=== PATIENT | female | born 1955 | race Caucasian/White ===

== ENCOUNTER 2017-10-13 06:28 | Day surgery (SDC) | payer OTHER ==
[~2017-10-13] VITALS: Ht 172.7 cm; Wt 157.4 kg
[~2017-10-13 06:28] MED LIST: ACET500 PO; ASPI81EC PO; CHLO25B PO; FERR325 PO; FISH1000 PO; LEVSOD100 PO; LEVSOD25 PO; LOESTRIN FE PO; MECL12.5 PO; MEDR5 PO; ORACON PO
[2017-10-13] MEDS ORDERED: ASPI325 PO (07:10)
[2017-10-13] MEDS ORDERED: ACET500 (07:10)
== END 2017-10-14 00:05 | disposition home or self-care (01) ==
LOC: ORSCMMR 06:28
PROVIDERS: Internal Medicine Gastroenterology
PROC: 0DBL8ZX Excision of Transverse Colon, Via Natural or Artificial Opening Endoscopic, Diagnostic (ICD-10-PCS; principal; 2017-10-13 08:00)
PROC: 0DBE8ZX Excision of Large Intestine, Via Natural or Artificial Opening Endoscopic, Diagnostic (ICD-10-PCS; principal; 2017-10-13 08:00)
PROC: 0DBK8ZX Excision of Ascending Colon, Via Natural or Artificial Opening Endoscopic, Diagnostic (ICD-10-PCS; principal; 2017-10-13 08:00)
PROC: 0DBN8ZX Excision of Sigmoid Colon, Via Natural or Artificial Opening Endoscopic, Diagnostic (ICD-10-PCS; principal; 2017-10-13 08:00)
DX: Z12.11 Encounter for screening for malignant neoplasm of colon (principal); D12.2 Benign neoplasm of ascending colon; D12.3 Benign neoplasm of transverse colon; D12.5 Benign neoplasm of sigmoid colon; K63.5 Polyp of colon; K62.1 Rectal polyp; K52.9 Noninfective gastroenteritis and colitis, unspecified; K64.8 Other hemorrhoids; I10 Essential (primary) hypertension; E66.01 Morbid (severe) obesity due to excess calories; Z68.43 Body mass index [BMI] 50.0-59.9, adult; F17.210 Nicotine dependence, cigarettes, uncomplicated; Z79.899 Other long term (current) drug therapy; Z79.82 Long term (current) use of aspirin
CPT/HCPCS: 88305; J7120

== ENCOUNTER 2020-07-05 10:36 | Emergency (ER) | payer OTHER ==
[~2020-07-05] VITALS: Ht 172.7 cm; Wt 163.3 kg
[~2020-07-05 10:36] MED LIST changes: +ACET500; +ASPI325 PO
[2020-07-05 11:11] LABS: BASOPHILS ABSOLUTE AUTO 0.06 K/mm3 (0.00-0.23); BASOPHILS PERCENT AUTO 1 % (0-2); EOSINOPHILS ABSOLUTE AUTO 0.18 K/mm3 (0.00-0.68); EOSINOPHILS PERCENT AUTO 3 % (0-6); Hematocrit 44.1 % (33.0-51.0); Hemoglobin 14.1 g/dL (11.5-16.0); IMMATURE GRAN ABSOLUTE AUTO 0.03 K/mm3 (0.00-0.10); IMMATURE GRAN PERCENT AUTO 1 % (0-1); LYMPHOCYTES ABSOLUTE AUTO 1.82 K/mm3 (0.84-5.20); LYMPHOCYTES PERCENT AUTO 31 % (21-46); MONOCYTES ABSOLUTE AUTO 0.38 K/mm3 (0.16-1.47); MONOCYTES PERCENT AUTO 7 % (4-13); Mean Corpuscular HGB 28.5 pg (26.0-34.0); Mean Corpuscular Volume 89 fL (80-100); Mean Platelet Volume 10.4 fL (9.1-12.4); NEUTROPHILS ABSOLUTE AUTO 3.41 K/mm3 (1.96-9.15); NEUTROPHILS PERCENT AUTO 58 % (41-73); Platelet Count 213 K/mm3 (150-400); RDW Coefficient Variation 13.8 % (11.7-14.2); RDW Standard Deviation 44.3 fL (35.1-46.3); Red Blood Cell Count 4.94 M/mm3 (3.80-5.20); White Blood Cell Count 5.88 K/mm3 (4.00-11.30)
[2020-07-05 11:30] LABS: Alanine Aminotransfer (ALT/SGP 17 U/L (12-78); Albumin, Blood 3.9 g/dL (3.4-5.0); Alk Phos 91 U/L (50-136); Anion Gap 5 mmol/L (6-16); Aspartate Aminotrans (AST/SGOT 20 U/L (12-37); Bilirubin, Total 0.6 mg/dL (0.1-1.0); Blood Urea Nitrogen 18 mg/dL (8-24); Bun/Creatinine Ratio 25.3 (12.0-20.0); CO2, Blood 29 mmol/L (21-32); Calcium, Blood 9.2 mg/dL (8.5-10.1); Chloride, Blood 110 mmol/L (98-108); Creatinine, Blood 0.71 mg/dL (0.40-1.00); Globulin, Blood 4.1 g/dL (2.2-4.0); Glomerular Filtration Rate >60 (60-); Glucose, Blood 82 mg/dL (70-99); Potassium, Blood 3.9 mmol/L (3.5-5.5); Sodium, Blood 144 mmol/L (136-145); Troponin I <0.015 ng/mL (0.000-0.040)
[2020-07-05] MEDS ORDERED: POTA20PAC PO (13:40)
[2020-07-05] MEDS ORDERED: CODACE30 PO (13:40)
[2020-07-05] MEDS ORDERED: FURO20 PO (13:40)
== END 2020-07-05 14:11 | disposition home or self-care (01) ==
LOC: ER 10:36
PROVIDERS: Physician Assistant
DX: M16.11 Unilateral primary osteoarthritis, right hip (principal); R60.0 Localized edema; E03.9 Hypothyroidism, unspecified; Z91.041 Radiographic dye allergy status; Z88.8 Allergy status to other drugs, medicaments and biological substances; Z79.82 Long term (current) use of aspirin; Z79.899 Other long term (current) drug therapy
CPT/HCPCS: 36415; 71046; 73502; 80053; 83880; 84484; 85025; 93005; 93010; 99284-25

== ENCOUNTER 2022-06-03 07:02 | Day surgery (SDC) | payer OTHER, MEDICARE ==
[~2022-06-03] VITALS: Ht 172.7 cm; Wt 161.7 kg
[~2022-06-03 07:02] MED LIST changes: +CODACE30 PO; +FURO20 PO; +POTA20PAC PO
[2022-06-03] MEDS ORDERED: EUTHYROX175 MCG PO (07:34)
[2022-06-03] MEDS ORDERED: NAPR220 PO (07:35)
--- NOTE | 2022-06-03 09:14 | NUR ---
06/03/22 0914 Katie Quezada REFER TO DR GUILLEN'S ANESTHESIA RECORD.
--- NOTE | 2022-06-03 10:48 | NUR ---
Discharge instructions reviewed with patient. Patient verbalizes understanding. Copy given to patient to take home. Discharged via wheelchair to private car for ride home.
== END 2022-06-03 10:49 | disposition home or self-care (01) ==
LOC: ORSCMMR 07:02 → ORD 08:45 → ORSCMMR 08:45 → ORD 09:00 → ORSCMMR 10:49
PROVIDERS: Internal Medicine Gastroenterology
PROC: 0DBL8ZX Excision of Transverse Colon, Via Natural or Artificial Opening Endoscopic, Diagnostic (ICD-10-PCS; principal; 2022-06-03 08:45)
PROC: 0DBN8ZX Excision of Sigmoid Colon, Via Natural or Artificial Opening Endoscopic, Diagnostic (ICD-10-PCS; principal; 2022-06-03 08:45)
PROC: 0DBE8ZX Excision of Large Intestine, Via Natural or Artificial Opening Endoscopic, Diagnostic (ICD-10-PCS; principal; 2022-06-03 08:45)
DX: K51.90 Ulcerative colitis, unspecified, without complications (principal); Z86.010 Personal history of colon polyps; Z83.71 Family history of colonic polyps; K51.40 Inflammatory polyps of colon without complications; K63.5 Polyp of colon; K64.8 Other hemorrhoids; K64.4 Residual hemorrhoidal skin tags; L53.9 Erythematous condition, unspecified; G47.33 Obstructive sleep apnea (adult) (pediatric); R56.9 Unspecified convulsions; E05.90 Thyrotoxicosis, unspecified without thyrotoxic crisis or storm; E66.01 Morbid (severe) obesity due to excess calories; Z68.43 Body mass index [BMI] 50.0-59.9, adult; Z79.82 Long term (current) use of aspirin; Z79.899 Other long term (current) drug therapy
CPT/HCPCS: 88305; J2250; J2405; J2704; J7120

== ENCOUNTER 2023-01-19 11:34 | Inpatient (IN) | payer MEDICARE, OTHER ==
[2023-01-19] VITALS (16 sets, daily range): BP systolic 128–155; BP diastolic 67–100
[~2023-01-19] VITALS: Ht 172.7 cm; Wt 143.8 kg
[~2023-01-19 11:34] MED LIST changes: -LEVSOD150 PO
[2023-01-19] MEDS ORDERED: LEVSOD150 PO ×2 (12:17)
[2023-01-19] MEDS ORDERED: ACET500 PO ×2 (12:19)
--- NOTE | 2023-01-19 15:54 | NUR ---
ASSESSMENTS I AGREE WITH THE STUDENT RN MAGNUS'S ASSESSMENTS AND DOCUMENTATION ON THIS PATIENT
--- NOTE | 2023-01-19 17:09 | NUR ---
VITOR ARRIVED TO OUR UNIT A DIRECT ADMIT FROM REARDAN, SHE WAS SEEN BY DR. TEMPLETON TODAY FOR A SURGICAL CONSULT, GOT AN ABD CT SCAN, AND AN NG TUBE PLACED. AFTER REVIEW OF THE CT SCAN, THE PT WAS TAKEN DOWN FOR SURGERY @ 1712 ACOMPANIED BY HER .
--- NOTE | 2023-01-19 17:11 | NUR ---
PT IS A/OX4, PLEASANT AND COOPERATIVE. THE PT IS UP WITH MINIMAL ASSIST. PT WAS MEDICATED FOR PAIN X1 SO FAR THIS SHIFT. NG TUBE WAS PLACED AND SECURED DRAINING GREEN BILE. PT TOLERATED THE NG PLACEMENT WELL. THE PT WAS TAKEN TO THE OR AT THIS TIME.
--- NOTE | 2023-01-19 17:27 | NUR ---
SITE WAS NOTICEABLY RED, DR. LEMON EXAMINED AND ASSESSED AND BECAUSE OF PATENCY, DECIDED TO KEEP A SECOND SITE. WILL REMOVE AFTER SURGERY.
--- NOTE | 2023-01-19 18:20 | NUR ---
report recieved on patient. she will be coming to room 224 post procedure. will report to oncoming rn.
[2023-01-20 00:17] VITALS: BP 132/77
[2023-01-20 02:37] VITALS: BP 146/75
--- NOTE | 2023-01-20 04:18 | NUR ---
SHIFT SUMMARY POD1 EX LAP WITH LYSIS OF ADHESIONS,SMALL BOWEL RESECTION. DELLA DRESSING TO RLQ TRANSVERSE INCISION, WNL AND COMPRESSED WITH SX AND SEAL INTACT. C/D/I. LAY DRAIN TO RLQ DRAINING BLOOD TINGED LIQUID, DRAIN IS COMPRESSED. AND SECURED WITH THG TRANSPARENT DRESSING. NGT IN PLACE TO LOW INT. SX. WITH GREEN LIQUID DRAINAGE OUTPUT. PATIENT IS NPO AT THIS TIME, DENIES N/V. HYPOACTIVE BOWEL TONES. MEDICATED FOR PAIN AND WELL MANAGED. NOTED THAT THE PATIENT HAS A REDDEND AREA IN THE GROIN, ORDER OBTAINED FOR NYSTATIN CREAM. PATIENT IS AOX4. SCD'S IN PLACE. VITAL SIGNS WNL. CALL LIGHT IN REACH, WILL REPORT TO ONCOMING NURSE.
[2023-01-20 04:39] LABS: BASOPHILS ABSOLUTE AUTO 0.02 K/mm3 (0.00-0.23); BASOPHILS PERCENT AUTO 0 % (0-2); EOSINOPHILS PERCENT AUTO 0 % (0-6); Hematocrit 45.9 % (33.0-51.0); Hemoglobin 14.9 g/dL (11.5-16.0); IMMATURE GRAN ABSOLUTE AUTO 0.07 K/mm3 (0.00-0.10); IMMATURE GRAN PERCENT AUTO 1 % (0-1); LYMPHOCYTES ABSOLUTE AUTO 1.03 K/mm3 (0.84-5.20); LYMPHOCYTES PERCENT AUTO 7 % (21-46); MONOCYTES ABSOLUTE AUTO 1.36 K/mm3 (0.16-1.47); MONOCYTES PERCENT AUTO 9 % (4-13); Mean Corpuscular HGB 28.3 pg (26.0-34.0); Mean Corpuscular HGB Conc 32.5 g/dL (31.5-36.5); Mean Corpuscular Volume 87 fL (80-100); Mean Platelet Volume 10.5 fL (9.1-12.4); NEUTROPHILS ABSOLUTE AUTO 12.56 K/mm3 (1.96-9.15); NEUTROPHILS PERCENT AUTO 84 % (41-73); Platelet Count 207 K/mm3 (150-400); RDW Coefficient Variation 13.3 % (11.7-14.2); RDW Standard Deviation 42.6 fL (35.1-46.3); Red Blood Cell Count 5.26 M/mm3 (3.80-5.20); White Blood Cell Count 15.04 K/mm3 (4.00-11.30)
[2023-01-20 05:05] LABS: Albumin, Blood 2.6 g/dL (3.4-5.0); Albumin/Globulin Ratio 0.8 (0.8-1.8); Bilirubin, Total 0.7 mg/dL (0.1-1.0); Bun/Creatinine Ratio 25.2 (12.0-20.0); Calcium, Blood 8.2 mg/dL (8.5-10.1); Creatinine, Blood 0.68 mg/dL (0.40-1.00); Globulin, Blood 3.4 g/dL (2.2-4.0); Potassium, Blood 3.5 mmol/L (3.5-5.5)
[2023-01-20 07:10] VITALS: BP 144/73
[2023-01-20 14:39] VITALS: BP 109/62
[2023-01-20 19:27] VITALS: BP 137/55
--- NOTE | 2023-01-20 19:28 | NUR ---
SHIFT SUMMARY PT POD 1 EXPLORATORY LAP, SM BOWEL RESECTION, AND HERNIA REPAIR. SHE A/O X4. VSS, O2 >90% ON 2L NC. SHE HAS A DELLA DRESSING IN HER RLQ, DRESSING C/D/I. LAY DRAIN IN RLQ WITH 30ML PINK/CLEAR FLUID OUT. SHE HAS AN NG TUBE TO LOW INTERMITTENT SUCTION WITH 100ML OF DARK BROWN/MAROON FLUID OUT, DECREASED FROM PREVIOUS SHIFT. PT PAIN IS WELL MANAGED WITH MORPHINE Q4. HER NG WAS REMOVED THIS AFTERNOON. UP TO THE CHAIR WITH 1 PERSON ASSIST TODAY. SHE HAS BEEN EDUCATED ON THE USE OF HER CALL LIGHT AND CALLS APPROPRIATELY. WILL REPORT TO TELEPHONE LINES REPAIRER RN.
[2023-01-21 04:44] LABS: BASOPHILS ABSOLUTE AUTO 0.03 K/mm3 (0.00-0.23); BASOPHILS PERCENT AUTO 0 % (0-2); EOSINOPHILS ABSOLUTE AUTO 0.09 K/mm3 (0.00-0.68); EOSINOPHILS PERCENT AUTO 1 % (0-6); Hematocrit 42.6 % (33.0-51.0); Hemoglobin 13.5 g/dL (11.5-16.0); IMMATURE GRAN ABSOLUTE AUTO 0.05 K/mm3 (0.00-0.10); IMMATURE GRAN PERCENT AUTO 1 % (0-1); LYMPHOCYTES ABSOLUTE AUTO 1.41 K/mm3 (0.84-5.20); LYMPHOCYTES PERCENT AUTO 13 % (21-46); MONOCYTES ABSOLUTE AUTO 1.06 K/mm3 (0.16-1.47); MONOCYTES PERCENT AUTO 10 % (4-13); Mean Corpuscular HGB 28.5 pg (26.0-34.0); Mean Corpuscular HGB Conc 31.7 g/dL (31.5-36.5); Mean Corpuscular Volume 90 fL (80-100); Mean Platelet Volume 11.1 fL (9.1-12.4); NEUTROPHILS ABSOLUTE AUTO 7.93 K/mm3 (1.96-9.15); NEUTROPHILS PERCENT AUTO 75 % (41-73); Platelet Count 198 K/mm3 (150-400); RDW Coefficient Variation 13.5 % (11.7-14.2); RDW Standard Deviation 44.6 fL (35.1-46.3); Red Blood Cell Count 4.73 M/mm3 (3.80-5.20); White Blood Cell Count 10.57 K/mm3 (4.00-11.30)
[2023-01-21 05:07] LABS: Albumin, Blood 2.3 g/dL (3.4-5.0); Albumin/Globulin Ratio 0.6 (0.8-1.8); Bilirubin, Total 0.8 mg/dL (0.1-1.0); Bun/Creatinine Ratio 26.5 (12.0-20.0); Calcium, Blood 8.4 mg/dL (8.5-10.1); Creatinine, Blood 0.79 mg/dL (0.40-1.00); Globulin, Blood 3.6 g/dL (2.2-4.0); Potassium, Blood 3.4 mmol/L (3.5-5.5); Total Protein, Blood 5.9 g/dL (6.4-8.2)
[2023-01-21 05:26] VITALS: BP 140/65
--- NOTE | 2023-01-21 06:47 | NUR ---
SHIFT SUMMARY NO ACUTE CHANGES OVERNIGHT, PT HAS RESTED OFF AND ON T/O SHIFT. DELLA DRESSING TO ABD C/D/I, GREEN LIGHT FLASHING. LAY DRAIN IN PLACE WITH MINIMAL SEROSANGUINOUS OUTPUT. ABD SOFT TO TOUCH, BOWEL TONES ARE HYPOACTIVE X4 QUADRANTS. NG TUBE REMAINS IN PLACE TO LOW INTERMITTENT SUCTION. SMALL AMOUNT OF RUST COLOR DRAINAGE IN TUBING BUT NOTHING IN CANNISTER ALL NIGHT. SHE HAS NO COMPLAINTS OF ABD PAIN, SHE IS NOT YET PASSING GAS. PT COMPLAINS OF THROAT DISCOMFORT AND HEADACHE, MEDICATED PER EMAR. IV ANTIBIOTICS AND IVF PER ORDERS. PT HAS BEEN UP AND HAS VOIDED SINCE NG REMOVAL YESTERDAY EVENING. VITALS STABLE. BED IN LOWEST POSITION, CALL LIGHT WITHIN REACH.
[2023-01-21 07:00] VITALS: BP 123/56
[2023-01-21 16:19] VITALS: BP 123/56
--- NOTE | 2023-01-21 18:49 | NUR ---
SHIFT SUMMARY PT A&OX4, VSS/RA, DEANDRE PO CLD, AMB INDEPENDENTLY IN ROOM/HALLWAY, VOIDING, DENIES PAIN. POD2, DELLA WNL, LAY 20 MLS SS, PASSING FLATUS. WILL REPORT TO ONCOMING NOC RN.
[2023-01-21 21:43] VITALS: BP 126/78
[2023-01-22 04:33] VITALS: BP 124/55
[2023-01-22 05:12] LABS: BASOPHILS ABSOLUTE AUTO 0.04 K/mm3 (0.00-0.23); BASOPHILS PERCENT AUTO 1 % (0-2); EOSINOPHILS ABSOLUTE AUTO 0.19 K/mm3 (0.00-0.68); EOSINOPHILS PERCENT AUTO 2 % (0-6); Hematocrit 40.2 % (33.0-51.0); Hemoglobin 12.5 g/dL (11.5-16.0); IMMATURE GRAN ABSOLUTE AUTO 0.03 K/mm3 (0.00-0.10); IMMATURE GRAN PERCENT AUTO 0 % (0-1); LYMPHOCYTES ABSOLUTE AUTO 1.47 K/mm3 (0.84-5.20); LYMPHOCYTES PERCENT AUTO 17 % (21-46); MONOCYTES PERCENT AUTO 9 % (4-13); Mean Corpuscular HGB Conc 31.1 g/dL (31.5-36.5); Mean Corpuscular Volume 90 fL (80-100); Mean Platelet Volume 11.2 fL (9.1-12.4); NEUTROPHILS ABSOLUTE AUTO 6.01 K/mm3 (1.96-9.15); NEUTROPHILS PERCENT AUTO 70 % (41-73); Platelet Count 211 K/mm3 (150-400); RDW Coefficient Variation 13.4 % (11.7-14.2); RDW Standard Deviation 44.7 fL (35.1-46.3); Red Blood Cell Count 4.46 M/mm3 (3.80-5.20); White Blood Cell Count 8.54 K/mm3 (4.00-11.30)
--- NOTE | 2023-01-22 05:16 | NUR ---
SHIFT SUMMARY PT HAS DONE WELL OVERNIGHT, SHE CONTINUES TO TOLERATE CLEAR LIQUIDS. NEW IV STARTED IN RIGHT HAND DUE TO THE OTHER IV LEAKING. IV ANTIBIOTICS INFUSED ORDERED. PT HAS BEEN UP TO THE BSC INDEPENDENTLY, SHE STILL HAS NOT HAD A BM. BOWEL TONES ARE SLIGHTLY HYPERACTIVE IN THE LLQ. PT STATES SHE IS STARTING TO FEEL LIKE SHE HAS TO HAVE A BM. LAY DRAIN WITH MINIMAL OUTPUT. DELLA DRESSING TO LOWER ABD C/D/I. VITALS ARE STABLE. NO ACUTE CHANGES OVERNIGHT. BED IN LOWEST POSITION, CALL LIGHT WITHIN REACH.
[2023-01-22 05:36] LABS: Albumin, Blood 2.3 g/dL (3.4-5.0); Albumin/Globulin Ratio 0.6 (0.8-1.8); Bilirubin, Total 0.6 mg/dL (0.1-1.0); Bun/Creatinine Ratio 21.4 (12.0-20.0); Calcium, Blood 8.7 mg/dL (8.5-10.1); Creatinine, Blood 0.7 mg/dL (0.40-1.00); Globulin, Blood 3.7 g/dL (2.2-4.0); Potassium, Blood 3.2 mmol/L (3.5-5.5)
[2023-01-22 07:28] VITALS: BP 123/64
[2023-01-22 14:43] VITALS: BP 135/61
--- NOTE | 2023-01-22 17:59 | NUR ---
SHIFT SUMMARY PT A&OX4, VSS/RA/I.S & TCDB, AMB W/FWW TO BRP/HALLWAY & UP TO CHAIR, DENIES PAIN, DEANDRE PO REGULAR DIET, VOIDING WELL/BM TODAY, IV SL. POD3, DELLA WNL, LAY 5MLS SS OUT. WILL REPORT TO ONCOMING NOC RN.
[2023-01-22 19:02] VITALS: BP 129/58
[2023-01-23 04:29] LABS: BASOPHILS ABSOLUTE AUTO 0.03 K/mm3 (0.00-0.23); BASOPHILS PERCENT AUTO 0 % (0-2); EOSINOPHILS ABSOLUTE AUTO 0.25 K/mm3 (0.00-0.68); EOSINOPHILS PERCENT AUTO 3 % (0-6); Hematocrit 39.9 % (33.0-51.0); Hemoglobin 12.9 g/dL (11.5-16.0); IMMATURE GRAN ABSOLUTE AUTO 0.04 K/mm3 (0.00-0.10); IMMATURE GRAN PERCENT AUTO 1 % (0-1); LYMPHOCYTES ABSOLUTE AUTO 2.05 K/mm3 (0.84-5.20); LYMPHOCYTES PERCENT AUTO 26 % (21-46); MONOCYTES ABSOLUTE AUTO 0.62 K/mm3 (0.16-1.47); MONOCYTES PERCENT AUTO 8 % (4-13); Mean Corpuscular HGB 28.3 pg (26.0-34.0); Mean Corpuscular HGB Conc 32.3 g/dL (31.5-36.5); Mean Corpuscular Volume 88 fL (80-100); Mean Platelet Volume 11.1 fL (9.1-12.4); NEUTROPHILS ABSOLUTE AUTO 4.82 K/mm3 (1.96-9.15); NEUTROPHILS PERCENT AUTO 62 % (41-73); Platelet Count 253 K/mm3 (150-400); RDW Coefficient Variation 13.3 % (11.7-14.2); RDW Standard Deviation 42.7 fL (35.1-46.3); Red Blood Cell Count 4.56 M/mm3 (3.80-5.20); White Blood Cell Count 7.81 K/mm3 (4.00-11.30)
[2023-01-23 04:54] LABS: Albumin, Blood 2.5 g/dL (3.4-5.0); Albumin/Globulin Ratio 0.7 (0.8-1.8); Bilirubin, Total 0.7 mg/dL (0.1-1.0); Bun/Creatinine Ratio 16.1 (12.0-20.0); Calcium, Blood 8.8 mg/dL (8.5-10.1); Creatinine, Blood 0.69 mg/dL (0.40-1.00); Globulin, Blood 3.7 g/dL (2.2-4.0); Potassium, Blood 3.5 mmol/L (3.5-5.5); Total Protein, Blood 6.2 g/dL (6.4-8.2)
[2023-01-23 05:39] VITALS: BP 136/64
[2023-01-23 07:14] VITALS: BP 146/61
--- NOTE | 2023-01-23 08:37 | NUR ---
SUMMARY PT PLANS FOR DISCHARGE TODAY.
--- NOTE | 2023-01-23 17:33 | NUR ---
DISCHARGE PT DISCHARGED HOME FROM UNIT AT 1130. FROYLAN HERNANDEZ WENT OVER DC INSTUCTIONS AND PT VERBALIZED UNDERSTANDING OF THESE INSTRUCTIONS. NO IV TO REMOVE. WC TO PRIVATE VEHICLE.
== END 2023-01-23 11:35 | disposition home or self-care (01) | DRG 330 ==
LOC: SURS 11:34 → MEDS 11:34 → SURS 18:25
PROVIDERS: Family Medicine; Surgery; ADMIT Family Medicine
PROC: 0WQF0ZZ Repair Abdominal Wall, Open Approach (ICD-10-PCS; 2023-01-19)
PROC: 0DN80ZZ Release Small Intestine, Open Approach (ICD-10-PCS; 2023-01-19)
PROC: 0W9G00Z Drainage of Peritoneal Cavity with Drainage Device, Open Approach (ICD-10-PCS; 2023-01-19)
PROC: 0DH67UZ Insertion of Feeding Device into Stomach, Via Natural or Artificial Opening (ICD-10-PCS; 2023-01-19)
PROC: 0DB80ZZ Excision of Small Intestine, Open Approach (ICD-10-PCS; principal; 2023-01-19 17:00)
DX: K43.0 Incisional hernia with obstruction, without gangrene (principal); K56.50 Intestinal adhesions [bands], unspecified as to partial versus complete obstruction; Z68.42 Body mass index [BMI] 45.0-49.9, adult; K43.6 Other and unspecified ventral hernia with obstruction, without gangrene; I10 Essential (primary) hypertension; E66.01 Morbid (severe) obesity due to excess calories; Z66 Do not resuscitate; K59.00 Constipation, unspecified; E03.9 Hypothyroidism, unspecified; E78.5 Hyperlipidemia, unspecified; E87.6 Hypokalemia; Z79.82 Long term (current) use of aspirin; Z79.899 Other long term (current) drug therapy; Z90.722 Acquired absence of ovaries, bilateral; Z90.49 Acquired absence of other specified parts of digestive tract; Z88.8 Allergy status to other drugs, medicaments and biological substances; Z98.51 Tubal ligation status; Z98.890 Other specified postprocedural states; Z87.891 Personal history of nicotine dependence; Z90.710 Acquired absence of both cervix and uterus; Z91.041 Radiographic dye allergy status
CPT/HCPCS: 36415; 74177; 80053; 85025; 88302; 88307; 94760; A9270; C9113; J0330; J1100; J1200; J1650; J2250; J2270; J2370; J2405; J2543; J2704; J2920; J3010; J7050; J7120; Q9967

== ENCOUNTER → 2023-01-19 | Outpatient (CLI) | payer OTHER ==
[~2023-01-19] MED LIST changes: +EUTHYROX175 MCG PO; +LEVSOD150 PO; +NAPR220 PO
== END | disposition home or self-care (01) ==
LOC: LAB SHORT 10:43 → LAB 10:43
DX: K56.609 Unspecified intestinal obstruction, unspecified as to partial versus complete obstruction (principal)
CPT/HCPCS: 83605

== ENCOUNTER → 2023-01-19 | Outpatient (CLI) | payer OTHER ==
[2023-01-19 08:56] LABS: BASOPHILS ABSOLUTE AUTO 0.05 K/mm3 (0.00-0.23); BASOPHILS PERCENT AUTO 0 % (0-2); EOSINOPHILS ABSOLUTE AUTO 0.01 K/mm3 (0.00-0.68); EOSINOPHILS PERCENT AUTO 0 % (0-6); Hemoglobin 16.9 g/dL (11.5-16.0); IMMATURE GRAN ABSOLUTE AUTO 0.05 K/mm3 (0.00-0.10); IMMATURE GRAN PERCENT AUTO 0 % (0-1); LYMPHOCYTES ABSOLUTE AUTO 1.35 K/mm3 (0.84-5.20); LYMPHOCYTES PERCENT AUTO 9 % (21-46); MONOCYTES ABSOLUTE AUTO 1.12 K/mm3 (0.16-1.47); MONOCYTES PERCENT AUTO 8 % (4-13); Mean Corpuscular HGB 28.9 pg (26.0-34.0); Mean Corpuscular HGB Conc 33.8 g/dL (31.5-36.5); Mean Corpuscular Volume 86 fL (80-100); Mean Platelet Volume 10.7 fL (9.1-12.4); NEUTROPHILS ABSOLUTE AUTO 11.94 K/mm3 (1.96-9.15); NEUTROPHILS PERCENT AUTO 82 % (41-73); Platelet Count 258 K/mm3 (150-400); RDW Coefficient Variation 13.5 % (11.7-14.2); RDW Standard Deviation 41.6 fL (35.1-46.3); Red Blood Cell Count 5.85 M/mm3 (3.80-5.20); White Blood Cell Count 14.52 K/mm3 (4.00-11.30)
[2023-01-19 09:04] LABS: Albumin, Blood 3.3 g/dL (3.4-5.0); Albumin/Globulin Ratio 0.8 (0.8-1.8); Bilirubin, Total 0.9 mg/dL (0.1-1.0); Bun/Creatinine Ratio 20.4 (12.0-20.0); Calcium, Blood 9.1 mg/dL (8.5-10.1); Creatinine, Blood 0.93 mg/dL (0.40-1.00); Potassium, Blood 3.4 mmol/L (3.5-5.5); Total Protein, Blood 7.3 g/dL (6.4-8.2)
== END | disposition home or self-care (01) ==
LOC: LAB SHORT 08:50 → LAB 08:50
PROVIDERS: Family Medicine
DX: R10.9 Unspecified abdominal pain (principal)
CPT/HCPCS: 80053; 83690; 85025

== ENCOUNTER 2023-03-03 01:40 | Day surgery (SDC) | payer OTHER ==
[~2023-03-03 01:40] MED LIST changes: +LEVSOD150 PO
== END 2023-03-03 22:40 | disposition home or self-care (01) ==
LOC: WOUND 01:40
DX: S31.103A Unspecified open wound of abdominal wall, right lower quadrant without penetration into peritoneal cavity, initial encounter (principal); S30.1XXA Contusion of abdominal wall, initial encounter; Z90.49 Acquired absence of other specified parts of digestive tract; E66.01 Morbid (severe) obesity due to excess calories; Z98.890 Other specified postprocedural states; Z68.42 Body mass index [BMI] 45.0-49.9, adult
CPT/HCPCS: G0463

== ENCOUNTER 2023-03-10 04:04 | Day surgery (SDC) | payer OTHER | END 2023-03-10 22:34 | disposition home or self-care (01) | LOC: WOUND 04:04 | DX: S31.103D Unspecified open wound of abdominal wall, right lower quadrant without penetration into peritoneal cavity, subsequent encounter (principal); Z90.49 Acquired absence of other specified parts of digestive tract; E66.01 Morbid (severe) obesity due to excess calories; Z98.890 Other specified postprocedural states; S30.1XXD Contusion of abdominal wall, subsequent encounter | CPT/HCPCS: G0463 ==